=== PATIENT | female | born 1985 ===

== ENCOUNTER 2018-07-19 18:06 | Inpatient (IN) | payer OTHER ==
[~2018-07-19] VITALS: Ht 152.4 cm; Wt 62.1 kg
== END 2018-07-21 12:59 | disposition home or self-care (01) | DRG 832 ==
LOC: LDR 18:06
PROVIDERS: ADMIT Obstetrics & Gynecology
PROC: 4A0HXFZ Measurement of Products of Conception, Cardiac Rhythm, External Approach (ICD-10-PCS; principal; 2018-07-19)
PROC: BY4FZZZ Ultrasonography of Third Trimester, Single Fetus (ICD-10-PCS; 2018-07-19)
DX: O99.413 Diseases of the circulatory system complicating pregnancy, third trimester (principal); I47.2 Ventricular tachycardia; O76 Abnormality in fetal heart rate and rhythm complicating labor and delivery; O75.4 Other complications of obstetric surgery and procedures; I34.0 Nonrheumatic mitral (valve) insufficiency; Z3A.34 34 weeks gestation of pregnancy

== ENCOUNTER 2018-08-12 14:59 | Inpatient (IN) | payer OTHER ==
[~2018-08-12] VITALS: Ht 152.4 cm; Wt 3.2 kg
[2018-08-12] MEDS ORDERED: PROPRANOLOL HCL10 MG PO (15:43)
[2018-08-12] MEDS ORDERED: PROVIDA DHA CA1 EACH PO (15:44)
[2018-08-12] MEDS ORDERED: FOLIC ACID1 MG PO (15:44)
[2018-08-16] MEDS ORDERED: IRON325 MG PO (20:45)
[2018-08-19] MEDS ORDERED: PROPRANOLOL HCL10 MG PO (13:21)
[2018-08-19] MEDS ORDERED: DOCUSATE SODIU100 MG PO (13:22)
[2018-08-19] MEDS ORDERED: GAS RELIEF125 MG PO (13:22)
[2018-08-19] MEDS ORDERED: PREPLUS CA-FE1 EACH PO (13:22)
[2018-08-19] MEDS ORDERED: IBUPROFEN800 MG PO (13:22)
== END 2018-08-19 13:50 | disposition home or self-care (01) | DRG 788 ==
LOC: LDR 08-16 19:41 → OB/GYN 08-16 19:41 → LDR 08-21 15:15
PROVIDERS: ADMIT Obstetrics & Gynecology
PROC: 4A1HXCZ Monitoring of Products of Conception, Cardiac Rate, External Approach (ICD-10-PCS; 2018-08-16)
PROC: 10D00Z1 Extraction of Products of Conception, Low, Open Approach (ICD-10-PCS; principal; 2018-08-16 19:00)
DX: O82 Encounter for cesarean delivery without indication (principal); O64.1XX0 Obstructed labor due to breech presentation, not applicable or unspecified; O76 Abnormality in fetal heart rate and rhythm complicating labor and delivery; Z3A.38 38 weeks gestation of pregnancy; Z37.0 Single live birth

== ENCOUNTER → 2020-08-27 | Day surgery (SDC) | payer OTHER ==
[~2020-08-27] MED LIST: DOCUSATE SODIU100 MG PO; FOLIC ACID1 MG PO; GAS RELIEF125 MG PO; IBUPROFEN800 MG PO; IRON325 MG PO; MOTRIN IB200 MG PO; PREPLUS CA-FE1 EACH PO; PROPRANOLOL HCL10 MG PO; PROTONIX40 MG PO; PROVIDA DHA CA1 EACH PO; ZOFRAN8 MG PO
== END | disposition home or self-care (01) ==
LOC: ADM 08-20 08:15 → CIR.AMB 06:22
PROVIDERS: ATTEND Obstetrics & Gynecology
DX: Z30.2 Encounter for sterilization (principal); Z20.822 Contact with and (suspected) exposure to COVID-19